=== PATIENT | male | born 1995 | race Caucasian/White ===

== ENCOUNTER 2017-07-07 16:36 | Emergency (ER) | payer SELFPAY ==
--- NOTE | 2017-07-07 18:14 | EDPHY ---
H & P Time Seen by Provider: 07/07/17 18:01 HPI/ROS: HPI Left foot pain. 22-year-old male by private vehicle. This patient continued planes of atraumatic left foot pain, worsening over the last 3-4 days. He denies any history of fall, twisting or other trauma. He describes the pain dorsal aspect at the metatarsal phalangeal joint, primarily at 4. Denies any ankle pain. No other complaint. ROS: Constitutional: No fever, no chills. No weakness. Musculoskeletal: No back pain. No knee pain. As above. Skin: No rashes. No lacerations or abrasions. Neurological: No focal weakness or altered sensation. Past medical history: Depression, attention deficit hyperactivity disorder, obesity. Social history: Nonsmoker. Here by himself. No alcohol. Physical Exam: General Appearance: Alert, no distress. This patient is responding to questions appropriately and in full sentences. This patient appears well- hydrated and well-nourished. Eyes: Pupils equal and round no pallor or injection. No lid edema, erythema or injection. Left foot exam: No is symmetric swelling in comparison to the right foot. He does have tenderness on palpation at the 4th dorsal aspect metatarsal phalangeal joint. He also has pain elicited on axial compression of the 4th toe. There is no significant swelling, ecchymosis. No erythema or warmth associated. The other bony aspects of the foot are nontender on palpation and axial compression of the digits. The bony aspects of the left ankle are nontender and without swelling. The left foot is neurovascularly intact. Neurological: Motor sensory function is grossly intact. Cranial nerves are normal. Gait is normal. Skin: Warm and dry, no rashes. Extremities are symmetrical. All joints range without pain or impingement except noted. Psychiatric: No agitation. No depression. Database: EKG: Imaging: Left foot x-ray series: Negative for fracture, subluxation, dislocation. Interpreted by me. Procedures: Emergency department course: Vital signs reviewed. He is moderately hypertensive. Left foot x-ray series to be obtained. Patient given 600 mg of ibuprofen. 6:50 p.m., patient re-evaluated. Resting comfortably at this time. Discussed results of his x-rays with him and his mother. Explained that there was no evidence of fracture or other abnormality. At this time I think his pain is secondary to a sprain in his foot. I do not think a gouty arthritis is present. Septic arthritis very unlikely. I did offer a hard-soled ortho shoe. However, he is comfortable in his sandals. I will put him on high-dose ibuprofen for the next 3 days. I will refer him to a hearing care practitioner. He is comfortable with this plan. He understands his follow-up. Return to emergency department precautions reviewed thoroughly. All of his questions were answered. He was discharged in good condition with his mother. Differential Diagnosis: The differential diagnosis on this patient includes but is not limited to left foot sprain, stress fracture of the 4th metacarpal. Septic arthritis, gouty arthritis unlikely. This represents a partial list of diagnoses considered. These considerations are based on history, physical exam, past history, reassessment and diagnostic testing. Smoking Status: Current some day smoker Constitutional: Initial Vital Signs Temperature (C) 37.0 C 07/07/17 16:39 Heart Rate 83 07/07/17 16:39 Respiratory Rate 16 07/07/17 16:39 Blood Pressure 147/92 H 07/07/17 16:39 O2 Sat (%) 98 07/07/17 16:39 O2 Delivery Mode Room Air Allergies/Adverse Reactions: No Known Allergies Allergy (Unverified 07/07/17 16:38) Home Medications: Medication Instructions Recorded NK [No Known Home Meds] 07/07/17 Medical Decision Making - Diagnostics Imaging Results: Imaging Impressions Foot X-Ray 07/07/17 16:46 Impression: Normal. Departure - Departure Disposition: Home, Routine, Self-Care Clinical Impression: Left foot pain, Sprain of left foot Condition: Good Instructions: Foot Sprain (ED) Additional Instructions: Read and follow provided instructions. Weightbear to your left foot as tolerated. Follow-up with podiatry, for re-evaluation of your foot on Monday or Monday of this coming week. Ibuprofen dosin mg every 6 hours with meals for the next 3 days only. Take only as needed for pain. Return to the emergency department for worsening pain, swelling, warmth, redness or other serious concerns. Referrals: Tanner Marie DPM [Doctor of Podiatric Medicine] - As per Instructions
[2017-07-07 19:06] VITALS: BP 152/87
== END 2017-07-07 19:06 | disposition home or self-care (01) ==
DX: S93.602A Unspecified sprain of left foot, initial encounter (principal); F17.200 Nicotine dependence, unspecified, uncomplicated; X58.XXXA Exposure to other specified factors, initial encounter